=== PATIENT | female | born 1950 | race Asian ===

== ENCOUNTER → 2022-07-07 09:23 | Outpatient (CLI) | payer MEDICARE, OTHER, SELFPAY ==
[2022-07-07 20:23] LABS: Hemoglobin A1C% w Est Avg Glu 9.5 % (4.0-6.0)
== END ==
DX: E11.22 Type 2 diabetes mellitus with diabetic chronic kidney disease (principal); N18.4 Chronic kidney disease, stage 4 (severe); Z79.4 Long term (current) use of insulin
CPT/HCPCS: 83036